=== PATIENT | female | born 1960 | race Caucasian/White ===

== ENCOUNTER 2022-09-14 05:24 | Inpatient (IN) | payer BC, SELFPAY ==
--- NOTE | 2022-09-14 05:43 | PC.NURSE ---
[facility] transfer [facility] called at 0317 for bed availability. Pt information gathered and relayed to hospitalist at this time. (Ramiro Wright) [facility] called back at [phone] with acceptance and bed assignment was given at this time ([id number]). Hospitalist notified that pt has arrived to ED at 0527.
[2022-09-14 05:46] VITALS: BP 153/94; PULSE 76; RESP 20; TEMP 36.6; O2SAT 98; BMI 35.0
--- NOTE | 2022-09-14 05:56 | XR_ITS ---
FINAL REPORT CLINICAL HISTORY: chest pain FINDINGS: A portable view of the chest was obtained. Cardiac and mediastinal silhouettes are within normal limits. There is evidence of granulomatous disease. The lungs are otherwise clear. There is no pleural effusion or pneumothorax. IMPRESSION: No acute process on this portable exam. Reviewed, Interpreted and Dictated by Nessa Ryan MD Transcribed by Larissa Powers Authenticated and [facility]
--- NOTE | 2022-09-14 05:58 | CA_ITS ---
APPROVED REPORT EXAM: Comprehensive 2D, Doppler, and color-flow Echocardiogram Membership Correspondent: SHIN Arevalo, RVS Ht: 5 ft 5 in Wt: 210lbs BSA: 2.02 BP: 154/94 mmHg Indications: NSTEMI, CP, Palpitations, Nausea, HTN Echo Enhancing Agent Comments: Technically difficult exam with limited windows due to breast implants 2D Dimensions IVSd 0.93 cm F: 0.6-1.0 LVEF (Visual) 64.70 % PWd 1.15 cm F: 0.6 - 1.0 LA Volume 29.10 mL LVDd 4.14 cm F: 3.9 - 5.3 LA Volume Index 14.191554 mL/m2 (M/F) 16-34 LVDs 2.69 cm F: 2.2 - 3.5 M-Mode Dimensions LA Diam 3.01 cm (1.9-4.0) Ao Diam 2.83 cm (2.0-3.7) EPSs 0.57 cm LV Diastology E Decel Time 187.00 (160-240 msec) E/A Ratio 0.90 MED E' 7.00 (< 7 cm/sec) MED A' 9.10 cm/s E'/MED E' Ratio 9.46 (>14) LAT E' 10.80 (<10 cm/sec) LAT A' 6.00 cm/s E/LAT E' Ratio 6.13 (>14) Aortic Valve LVOT Max 101.00 (70-110 cm/s) LVOT VTI 21.22 cm AoV Peak Fei. 112.00 (50-130 cm/s) AO Peak GR. 5.00 mmHg AO Mean GR. 2.60 (<5 mmHg) AO VTI 23.97 (18-25 cm) Mitral Valve MV A Velocity 74.00 (40-130 cm/s) E/A Ratio 0.90 MV Decel. Time 187.00 (160-240 ms) Pulmonary Valve PV Peak Velocity 61.00 (50-150 cm/s) Tricuspid Valve TR P. Velocity 234.00 cm/s RAP Estimate 10.00 mmHg RVSP 32.00 mmHg Left Ventricle Left atrium is mildly enlarged, left ventricle is normal size mild concentric left ventricular hypertrophy, estimated ejection fraction 50% with no regional wall motion abnormality, endocardial surfaces are poorly visualized, grade 1 diastolic dysfunction seen without tissue Doppler evidence of raise left atrial pressure. Right Ventricle Right atrium and right ventricular normal size and contractility. Aortic Valve Aortic valve is minimally thickened and fibrosed there is no aortic stenosis or aortic insufficiency. Mitral Valve Mitral valve is grossly normal, there is eccentric jet of mitral regurgitation present, which is likely in the moderate range. Tricuspid Valve Tricuspid valve grossly normal, there is trace tricuspid regurgitation, calculated right ventricular systolic pressure 32 mmHg. Pulmonic Valve Pulmonic valve is poorly visualized. Great Vessels Aortic root is normal size. Inferior vena cava normal inspiratory collapse. Pericardium No significant pericardial effusion noted. Conclusion 1. Mildly enlarged left atrium, normal left ventricular size, mild concentric left ventricular hypertrophy, estimated ejection fraction 50% with no obvious regional wall motion abnormality, grade 1 diastolic dysfunction seen without tissue Doppler evidence of raise left atrial pressure, endocardial surface of poorly visualized, technically difficult study. 2. Moderate mitral and trace tricuspid regurgitation, calculated right ventricular systolic pressure is 32 mmHg. 3. No significant pericardial effusion noted. 4. Inferior vena cava is normal size with normal inspiratory collapse. Electronically signed by : Duran Quiroga MD 09/14/2022 17:08:21
--- NOTE | 2022-09-14 06:01 | EXP.HP ---
History of Present Illness *Admission Date: 09/14/22 *Reason for visit:: Chest pain *History of present illness: Patient presents as a transfer from [place] due to NSTEMI. States yesterday she had fleeting typical chest pain with rest and exertion radiating to left arm. Worsened around 11 PM. Thought it was indigestion. Took a nap woke up it was still there, went to emergency department where her blood pressure was greater than 200. She was given multiple rounds of nitroglycerin which helped alleviate the pain. She was given Lopressor which additionally provided relief. Hospitalist service was contacted for transfer and accepted patient. On arrival patient is feeling much better with no chest pain. Occasional palpitations but no shortness of breath. Answered all questions and concerns. Cardiac risk factors also include hypertension, hyperlipidemia. [facility] Disclaimer: The information contained in this section may have been updated after the patient was seen, as this information can be updated by other users. Social History Smoking Status: Never smoker alcohol intake: never current occupational status: employed Travel in the last 8 weeks: Inside the [place] Review of Systems Review of Systems Review of systems:: pertinent systems reviewed and negative unless documented below Meds Home Medications and Allergies New Prescriptions to Start Prescriptions: Allergies Allergy/AdvReac Type Severity Reaction Status Date / Time codeine Allergy Verified 09/14/22 06:02 Penicillins Allergy Verified 09/14/22 06:02 Sulfa (Sulfonamide Allergy Verified 09/14/22 06:01 Antibiotics) Exam Data for Last 24 hours Vital signs and Labs for Last 24 Hours: Temp Pulse Resp BP Pulse Ox 97.8 F 76 20 153/94 H 98 09/14/22 05:46 09/14/22 05:46 09/14/22 05:46 09/14/22 05:46 09/14/22 05:46 I & O for Last 24 hours: Intake & Output 09/11/22 09/12/22 09/13/22 09/14/22 23:59 23:59 23:59 23:59 Weight 95.6 kg Constitutional Constitutional: no acute distress *Routine HEENT Exam Head: Present normocephalic and atraumatic Eye: Present EOMI ENT: Present mucous membranes moist *Routine Neck Exam Neck: Present supple; Absent JVD *Routine Respiratory Exam Respiratory: Present accessory muscle use and CTA bilaterally *Routine Cardiovascular Exam Cardiovascular: Present RRR, Normal S1 and Normal S2 *Routine Abdominal Exam Abdominal: Present soft; Absent tenderness *Routine Rectal Exam Rectal:: deferred *Routine Genitalia Exam Genitalia:: deferred *Routine Extremities Exam Extremities: Present cyanosis; Absent edema *Routine Skin Exam Skin: Present intact; Absent cyanosis *Routine Neurological Exam Neurological: Present alert and oriented X3 Assessment and Plan *Assessment and plan (1) Hypertensive emergency: Status: Acute Category: Medical Code(s): I16.1 - Hypertensive emergency (2) NSTEMI (non-ST elevated myocardial infarction): Status: Acute Category: Medical Code(s): I21.4 - Non-ST elevation (NSTEMI) myocardial infarction Plan 62-year-old female admitted as an NSTEMI due to hypertensive emergency with systolic blood pressures greater than 200. Chest pain is resolved with resolution of elevated blood pressure. Will consult cardiology Hypertensive emergency, improved -Continue beta-abiola -Nitro as needed chest pain -will need aggressive antihypertensives -We will monitor creatinine due to other end organs - cxr ordered NSTEMI -Consult cardiology -Heparin -Aspirin and Brilinta - morphine prn - nitro prn -Echo ordered -Telemetry -Repeat troponin
[2022-09-14 06:24] LABS: Basophils # 0.1 K/mm3 (0-0.2); Eosinophils # 0.1 K/mm3 (0.0-0.4); Eosinophils % 1.1 % (0.1-12.0); Hematocrit 42.4 % (37.0-47.0); Hemoglobin 14.3 g/dL (12.2-16.2); Lymphocytes # 1.6 K/mm3 (0.7-4.5); Lymphocytes % 18.4 % (10-50); Mean Corpuscular HGB Conc 33.7 g/dL (31.8-35.4); Mean Corpuscular Hemoglobin 30.6 pg (27.0-31.2); Mean Corpuscular Volume 90.9 fl (81-99); Mean Platelet Volume 7.6 fl (7.4-10.4); Monocytes # 0.3 K/mm3 (0.1-1.0); Neutrophils # 6.7 K/mm3 (1.8-7.8); Neutrophils % 76.5 % (37.0-80.0); Platelet Count 325 K/mm3 (142-424); Red Blood Count 4.67 M/mm3 (4.20-5.40); Red Cell Distribution Width 13.4 % (11.5-17.5); White Blood Count 8.8 K/mm3 (4.8-10.8)
[2022-09-14 06:35] LABS: Alanine Aminotransferase 26 U/L (12-78); Albumin Level 4.4 g/dl (3.5-5.0); Albumin/Globulin Ratio 1.5 (1.1-1.8); Alkaline Phosphatase 70 U/L (38-126); Aspartate Amino Transferase 42 U/L (14-36); Bilirubin,Total 0.4 mg/dl (0.2-1.3); Blood Urea Nitrogen 16 mg/dl (7-17); Calcium 10.3 mg/dl (8.4-10.2); Carbon Dioxide 30 mmol/L (22.0-30.0); Chloride 107 mmol/L (98-107); Chol/HDL Ratio 5.3 (1-3.5); Cholesterol 274 mg/dl (140-200); Creatinine Clearance Estimated 86 mL/min (50-200); Estimated Glomerular Filt Rate 101 ml/min (>60); GFR (African American) 122 ML/MIN (>60); Globulin 2.9 g/dL (1.3-3.2); Glucose 119 mg/dl (74-100); HDL Cholesterol 52 mg/dl (40-60); Magnesium 1.9 mg/dl (1.6-2.3); Phosphorous 4.1 mg/dl (2.5-4.5); Sodium 142 mmol/L (136-145); Total Protein,Serum 7.3 g/dl (6.3-8.2); Triglycerides 133 mg/dl (30-150); VLDL Cholesterol 27 mg/dL (0-40)
[2022-09-14 06:36] LABS: INR 1.06 (0.9-1.1); Lactic Acid 1.1 mmol/L (0.7-2.1); Prothrombin Time 11.4 seconds (10.1-12.5)
[2022-09-14 06:46] LABS: Direct LDL Cholesterol 160.12 mg/dL (100-129)
[2022-09-14 07:09] LABS: Troponin I 2.69 ng/ml (0.00-0.034)
[2022-09-14 07:13] LABS: PTT Heparin (inpatient only) 29.3 Seconds (23.6-34.0)
[2022-09-14 07:25] VITALS: BP 150/92; PULSE 75; RESP 17; TEMP 36.4; O2SAT 95
[2022-09-14 07:25] LABS: Coronavirus 19, PCR Not Detected (NotDetected); Influenza A, PCR Not Detected (NotDetected); Influenza B, PCR Not Detected (NotDetected)
--- NOTE | 2022-09-14 07:43 | HMH.PHAHEP ---
[facility] Heparin Dosing Demographic Data Admission date:: 09/14/22 Date: 09/14/22 Time: 07:43 Allergies Allergy/AdvReac Type Severity Reaction Status Date / Time codeine Allergy Verified 09/14/22 06:02 Penicillins Allergy Verified 09/14/22 06:02 Sulfa (Sulfonamide Allergy Verified 09/14/22 06:01 Antibiotics) Height: 1.65 m Weight: 95.6 kg Indication Medication therapy:: Heparin Current Active Problems (Updated 09/14/22 @ 06:06 by Melony Wright MD) Hypertensive emergency (Acute) NSTEMI (non-ST elevated myocardial infarction) (Acute) CVA?: No Bleeding problem?: No Kidney disease?: No UT?: No Desired PTT range:: 50-75 seconds Labs Anticoagulation Lab Results:: 09/14/22 06:14 Hgb 14.3 Hct 42.4 Plt Count 325 Monitoring Dose Monitor 1: Date: 09/14/22 Time: 06:15 PTT Result:: 29.3 (BASELINE) Infusion Rate:: 1,000 UNITS/HR Comment:: 4,000 UNIT BOLUS HSA=451 Dose Monitor 2: Date: 09/14/22 Time: 11:40 PTT Result:: 62.3 Infusion Rate:: 1,000 UNITS/HR Comment:: PATIENT TRANSFERRED Core Measures Is INR > or = 2 at discharge?: No Most Recent Labs:: Laboratory Results - last 24 hr 09/14/22 06:14: WBC 8.8, RBC 4.67, Hgb 14.3, Hct 42.4, MCV 90.9, MCH 30.6, MCHC 33.7, RDW 13.4, Plt Count 325, MPV 7.6, Neut % (Auto) 76.5, Lymph % (Auto) 18.4, [place] % (Auto) 3.0, Eos % (Auto) 1.1, Baso % (Auto) 1.0, Neut # (Auto) 6.7, Lymph # (Auto) 1.6, [place] # (Auto) 0.3, Eos # (Auto) 0.1, Baso # (Auto) 0.1 09/14/22 06:14: PT 11.4, INR 1.06 09/14/22 06:14: Sodium 142, Potassium 4.0, Chloride 107, Carbon Dioxide 30, Anion Gap 9.0, BUN 16, Creatinine 0.60, Estimated Creat Clear 86, Estimated GFR 101, Est GFR ( Amer) 122, Glucose 119 H, Calcium 10.3 H, Phosphorus 4.1, Magnesium 1.9, Total Bilirubin 0.4, AST 42 H, ALT 26, Alkaline Phosphatase 70, Total Protein 7.3, Albumin 4.4, Globulin 2.9, Albumin/Globulin Ratio 1.5, Triglycerides 133, Cholesterol 274 H, LDL Cholesterol Direct 160.12 H, VLDL Cholesterol 27, HDL Cholesterol 52, Cholesterol/HDL Ratio 5.3 H 09/14/22 06:14: Troponin I 2.69 H 09/14/22 06:14: Lactate 1.1 09/14/22 06:14: APTT 29.3 Were Heparin and Warfarin started on the same day?: No If not, why?: PATIENT TRANSFERRED
[2022-09-14 08:00] VITALS: PULSE 80; RESP 17
--- NOTE | 2022-09-14 08:43 | PC.NURSE ---
0745: Informed Dr. Woodson of pts Trop of 2.69. No new orders at this time.
--- NOTE | 2022-09-14 10:34 | EXP.CARD.HP ---
History of Present Illness *Admission Date: 09/14/22 *Reason for visit:: NSTEMi, HTN *History of present illness: Patient presents as a transfer from [place] due to NSTEMI and HTN. States yesterday she had fleeting typical chest pain with rest and exertion radiating to left arm. Worsened around 11 PM. Thought it was indigestion. Took a nap and pain was still present when awakening. Patient went to emergency department where her blood pressure was greater than 200. She was given multiple rounds of nitroglycerin which helped alleviate the pain. She was given Lopressor which additionally provided relief. Hospitalist service was contacted for transfer and accepted patient. On arrival patient is feeling much better with no chest pain. Occasional palpitations but no shortness of breath. Trop upon arrival was 2.69, EKG was negative for acute ischemic changes. Patient does endorse ongoing and worsening fatigue and soa with limited activity prior to onset of chest pain last night. After arriving to [facility], patient's [id number] requested patient be transferred to [facility] for further cardiology evaluation. LHC was offered to be performed at this facility, patient and decline, requesting transfer to [facility] to see cards there. I discussed the risks of postponing LHC with patient, she verbalized understanding. I spoke with Dr. Clarke, cardiology at [facility], who agrees to accept patient for further evaluation. Patient is currently awaiting transfer in stable condition. Review of Systems Review of Systems Review of systems:: pertinent systems reviewed and negative unless documented below Constitutional Constitutional: Reports system reviewed and no additional complaints, except as documented Eyes Eyes: Reports system reviewed and no additional complaints, except as documented ENT Ears, Nose, Mouth, and Throat: Reports system reviewed and no additional complaints, except as documented *Cardiovascular Cardiovascular: Reports chest pain at rest and Reports dyspnea on exertion Comments: fatigue *Respiratory Respiratory: Reports dyspnea on exertion *Gastrointestinal Gastrointestinal: Reports nausea *Genitourinary Genitourinary: Reports system reviewed and no additional complaints, except as documented *Musculoskeletal Musculoskeletal: Reports system reviewed and no additional complaints, except as documented Integumentary/Breasts Skin/Breast: Reports system reviewed and no additional complaints, except as documented *Neurologic Neurologic: Reports system reviewed and no additional complaints, except as documented Psychiatric Psychiatric: Reports system reviewed and no additional complaints, except as documented Endocrine Endocrine: Reports system reviewed and no additional complaints, except as documented Hematologic/Lymphatic Hematologic/Lymphatic: Reports system reviewed and no additional complaints, except as documented Allergic/Immunologic Allergic/Immunologic: Reports system reviewed and no additional complaints, except as documented Meds Home Medications and Allergies Home Medications Medication Instructions Recorded Confirmed Type No Known Home Medications 09/14/22 09/14/22 History New Prescriptions to Start Prescriptions: Allergies Allergy/AdvReac Type Severity Reaction Status Date / Time codeine Allergy Verified 09/14/22 06:02 Penicillins Allergy Verified 09/14/22 06:02 Sulfa (Sulfonamide Allergy Verified 09/14/22 06:01 Antibiotics) Exam Data for Last 24 hours Vital signs and Labs for Last 24 Hours: Temp Pulse Resp BP Pulse Ox 97.6 F 75 17 150/92 H 95 09/14/22 07:25 09/14/22 07:25 09/14/22 08:00 09/14/22 07:25 09/14/22 07:25 Laboratory Results - last 24 hr 09/14/22 06:14: WBC 8.8, RBC 4.67, Hgb 14.3, Hct 42.4, MCV 90.9, MCH 30.6, MCHC 33.7, RDW 13.4, Plt Count 325, MPV 7.6, Neut % (Auto) 76.5, Lymph % (Auto) 18.4, [place] % (Auto) 3.0, Eos % (Auto) 1.1, Baso % (Auto
[2022-09-14 11:09] VITALS: BP 127/76; PULSE 77; RESP 17; TEMP 36.8; O2SAT 95
--- NOTE | 2022-09-14 11:21 | PC.NURSE ---
PT. being transferred via ambulance to [facility] per pt. request. Report called to [facility] nurse for the accepting physician Dr. King. Pt. will go to room 9801 on the CVO Unit. Pt. updated on status at this time. No further questions or concerns. Will continue to monitor.
--- NOTE | 2022-09-14 11:41 | EXP.DC.SUM ---
General Admission date:: 09/14/22 Discharge date: 09/14/22 HPI HPI HPI: Patient presents as a transfer from [place] due to NSTEMI and HTN. States yesterday she had fleeting typical chest pain with rest and exertion radiating to left arm. Worsened around 11 PM. Thought it was indigestion. Took a nap and pain was still present when awakening. Patient went to emergency department where her blood pressure was greater than 200. She was given multiple rounds of nitroglycerin which helped alleviate the pain. She was given Lopressor which additionally provided relief. Hospitalist service was contacted for transfer and accepted patient. On arrival patient is feeling much better with no chest pain. Occasional palpitations but no shortness of breath. Trop upon arrival was 2.69, EKG was negative for acute ischemic changes. Patient does endorse ongoing and worsening fatigue and soa with limited activity prior to onset of chest pain last night. After arriving to [facility], patient's [id number] requested patient be transferred to [facility] for further cardiology evaluation. LHC was offered to be performed at this facility, patient and decline, requesting transfer to [facility] to see cards there. I discussed the risks of postponing LHC with patient, she verbalized understanding. I spoke with Dr. King, cardiology at [facility], who agrees to accept patient for further evaluation. Patient is currently awaiting transfer in stable condition. (Kelsey Mares Cardiology EDITOR [employer]) Hospital Course Hospital Course Hospital Course: The patient was admitted to the medical floor with telemetry and pulse oximetry monitoring. I received a call from the patient's [id number] Laxmi Mcfadden who is an employee of [facility]. She was requesting that her [id number]'s care be transitioned to [facility]. I spoke with Angela publishing manager at [facility]. She reported that they attempted to transfer the patient to [facility] during the communication arts lecturer hours but they declined secondary to bed availability. Dr. King (cardiology at [facility]) graciously accepted the patient for transition of care this morning pending bed availability at his facility. The patient reported no further chest pain during her stay at our facility and was continued on IV heparin therapy. We received a call from [facility] that a bed has become available and the patient's care will be transitioned as requested. Exam Data for Last 24 hours Vital signs and Labs for Last 24 Hours: Temp Pulse Resp BP Pulse Ox 98.2 F 77 17 127/76 95 09/14/22 11:09 09/14/22 11:09 09/14/22 11:09 09/14/22 11:09 09/14/22 11:09 Laboratory Results - last 24 hr 09/14/22 06:14: WBC 8.8, RBC 4.67, Hgb 14.3, Hct 42.4, MCV 90.9, MCH 30.6, MCHC 33.7, RDW 13.4, Plt Count 325, MPV 7.6, Neut % (Auto) 76.5, Lymph % (Auto) 18.4, [place] % (Auto) 3.0, Eos % (Auto) 1.1, Baso % (Auto) 1.0, Neut # (Auto) 6.7, Lymph # (Auto) 1.6, [place] # (Auto) 0.3, Eos # (Auto) 0.1, Baso # (Auto) 0.1 09/14/22 06:14: PT 11.4, INR 1.06 09/14/22 06:14: Sodium 142, Potassium 4.0, Chloride 107, Carbon Dioxide 30, Anion Gap 9.0, BUN 16, Creatinine 0.60, Estimated Creat Clear 86, Estimated GFR 101, Est GFR ( Amer) 122, Glucose 119 H, Calcium 10.3 H, Phosphorus 4.1, Magnesium 1.9, Total Bilirubin 0.4, AST 42 H, ALT 26, Alkaline Phosphatase 70, Total Protein 7.3, Albumin 4.4, Globulin 2.9, Albumin/Globulin Ratio 1.5, Triglycerides 133, Cholesterol 274 H, LDL Cholesterol Direct 160.12 H, VLDL Cholesterol 27, HDL Cholesterol 52, Cholesterol/HDL Ratio 5.3 H 09/14/22 06:14: Troponin I 2.69 H 09/14/22 06:14: Lactate 1.1 09/14/22 06:14: APTT 29.3 09/14/22 07:15: SARS-CoV-2 (PCR) Not detected, Influenza A Untype (PCR) Not detected, Influenza Type B (PCR) Not detected I & O for Last 24 hours: Intake & Output 09/11/22 09/12/22 09/13/22 09/14/22 23:59 23:59 23:59 23:59 Intake Total
[2022-09-14 12:00] VITALS: PULSE 80
[2022-09-14 12:11] LABS: PTT Heparin (inpatient only) 62.3 Seconds (23.6-34.0)
--- NOTE | 2022-09-14 12:46 | PC.NURSE ---
Ree at [facility] notified of pt d/c.
== END 2022-09-14 12:45 | disposition short-term general hospital (02) | DRG 281 ==
PROVIDERS: Admitting Provider Student in an Organized Health Care Education/Training Program; Visit Provider Family Medicine
DX: I21.4 Non-ST elevation (NSTEMI) myocardial infarction (principal); I16.1 Hypertensive emergency; I10 Essential (primary) hypertension
CPT/HCPCS: G0379; 36415; 71045; 80053; 80061; 83605; 83735; 84100; 84484; 85025; 85610; 85730; 93306; C9803; U0003; U0005